=== PATIENT | male | born 1960 | race Caucasian/White ===

== ENCOUNTER 2023-08-04 10:45 | Emergency (ER) | payer MEDICARE, SELFPAY ==
[2023-08-04] VITALS (14 sets, daily range): BP systolic 170–175; BP diastolic 74–84; PULSE 69–80; RESP 10–22; TEMP 36.9; O2SAT 91–94
--- NOTE | ~2023-08-04 | XR_ITS ---
EXAMINATION: XR chest 2V DATE: 08/04/2023 11:38 INDICATION: Weakness. TECHNIQUE: Frontal and lateral views of the chest were obtained. COMPARISON: None. FINDINGS: There is no pneumonia, pleural effusion, or pneumothorax. The heart size is normal. A vascu lar stent overlies the left shoulder. IMPRESSION: 1. No acute cardiopulmonary disease. Reviewed, dictated and finalized at location A.
--- NOTE | 2023-08-04 10:48 | ECG_ITS ---
[facility] [address] Test Date: 2023-08-04 Pat Name: Jaime Canas Department: Room: Gender: M Electrical Drafter: : 1960 Requested By: Wang Gómez Order Number: [id number] Jason MD: Hunter Gasca M.D. Measurements Intervals [place] Rate: 77 P: 58 DE: 178 QRS: -5 QRSD: 99 T: 49 QT: 412 QTc: 466 Interpretive Statements SINUS RHYTHM WITH OCCASIONAL VENTRICULAR PREMATURE COMPLEXES No previous ECG available for comparison Electronically Signed On 08-05-2023 13:48:38 CDT by Hunter Gasca M.D.
[2023-08-04 11:24] LABS: Basophils Percent Auto 0.4 % (0.2-1.2); Eosinophils Absolute Auto 0.1 K/mm3 (0-0.3); Eosinophils Percent Auto 1.7 % (0-4.4); Hematocrit 29.8 % (42.0-52.0); Hemoglobin 10.3 g/dL (14.0-18.0); Immature Granulocyte Absolute 0.01 K/mm3 (0.00-0.031); Immature Granulocyte Percent A 0.1 % (0-0.5); Lymphocytes Absolute Auto 1.62 K/mm3 (0.9-3.2); Lymphocytes Percent Auto 20.6 % (18.3-44.2); Mean Corpuscular HGB Conc 34.6 g/dl (32-36); Mean Corpuscular Hemoglobin 37.5 pg (26-34); Mean Corpuscular Volume 108.4 fl (80-100); Mean Platelet Volume 9.7 fl (7.4-10.4); Monocytes Absolute Auto 0.7 K/mm3 (0.1-0.6); Monocytes Percent Auto 9.3 % (2.6-8.5); Neutrophils Absolute Auto 5.3 K/mm3 (1.3-6.7); Neutrophils Percent Auto 67.9 % (45.5-73.1); Platelet Count Result 127 k/mm3 (150-375); Red Blood Count 2.75 M/mm3 (4.6-6.20); Red Cell Distribution Width 16.8 % (11.5-14.5); White Blood Count 7.9 K/mm3 (4.5-10.0)
[2023-08-04 11:49] LABS: Alanine Aminotransferase 16 U/L (6-50); Albumin Level 4.5 g/dL (3.5-5.1); Alkaline Phosphatase 91 U/L (38-126); Anion Gap 16 mmol/L (4-12); Aspartate Amino Transferase 30 U/L (17-59); Bilirubin,Total 1.2 mg/dL (0.2-1.3); Blood Urea Nitrogen 88 mg/dL (9-20); Calcium 9.5 mg/dL (8.4-10.2); Carbon Dioxide 26 mmol/L (22-30); Chloride 98 mmol/L (98-107); Estimated CRCL calculation 4 ml/min; Estimated Glomerular Filt Rate 3; Glucose 79 mg/dL (65-110); Potassium 5.8 mmol/L (3.4-5.0); Sodium 140 mmol/L (137-145)
[2023-08-04 11:59] LABS: Platelet Estimate Decreased (Adequate)
[2023-08-04 12:00] LABS: Anisocytosis 1+; Macrocytosis 1+ (NORMAL); Schistocytes None Seen
[2023-08-04] MEDS: SODIUM ZIRCONIUM CYCLOSILICATE 10 GM POWD.PACK PO (13:12)
--- NOTE | 2023-08-04 13:43 | ED.WEAKNESS ---
HPI - Weakness General Chief complaint: Weakness Stated complaint: weakness Time Seen by Provider: 08/04/23 10:59 Source: patient Mode of arrival: EMS Limitations: no limitations History of Present Illness HPI Narrative: 63-year-old with a history of hypertension, ESRD on dialysis here with the complaints of weakness since at this morning. Patient states that he was scheduled for dialysis but he felt extremely weak. Patient also reports that he used cocaine and alcohol last night and was unable to get up for his dialysis. He denies any chest pain no history of nausea or, vomiting or fever or chills. He endorses as his [employer] Sty[employer] and he gets his head dialysis at [facility] Complaint: generalized weakness Location: generalized Related Data Allergies Allergy/AdvReac Type Severity Reaction Status Date / Time No Known Allergies Allergy Verified 08/04/23 11:16 Review of Systems Review of Systems: All systems reviewed & are unremarkable except as noted in HPI and below Constitutional: Constitutional: Reports no additional constitutional complaints Eyes: Eyes: Reports no additional eye complaints ENT: Reports system reviewed and no additional complaints, except as documented Cardiovascular: Cardiovascular: Reports no additional cardiovascular complaints Respiratory: Respiratory: Reports no additional respiratory complaints Musculoskeletal: Musculoskeletal: Reports no additional musculoskeletal complaints Neurologic: Reports system reviewed and no additional complaints, except as documented Exam Narrative: GENERAL: Well-appearing, well-nourished, and in no acute distress. HEAD: Normocephalic, atraumatic. EYES: PERRLA and EOMI. ENT: Nares clear, no rhinorrhea or epistaxis. Mucous membranes moist. NECK: Supple. CHEST: Clear to auscultation. No respiratory distress. HEART: Regular rate and rhythm. No murmur heard. Normal peripheral pulses. ABDOMEN: Soft, nontender, nondistended, normal active bowel sounds. EXTREMITIES: Normal range of motion. No edema. SKIN: Warm, dry, no rash. NEURO: No focal deficits. Alert and oriented x3. PSYCH: Normal mood and affect. Course Course Emergency Course: I reviewed his lab work his potassium is 5 point he will given Lokelma. Discussed with Dr. monroy, patient can be discharged home and can be dialyzed tomorrow morning. Advised patient to stay away from cocaine and alcohol. Vital Signs Vital signs: Vital Signs Temperature 36.9 C 08/04/23 10:48 Pulse Rate 80 08/04/23 10:48 Respiratory Rate 20 08/04/23 10:48 Blood Pressure 175/82 H 08/04/23 10:48 Pulse Oximetry 94 08/04/23 10:48 Oxygen Delivery Room Air 08/04/23 10:48 Temperature 36.9 C 08/04/23 10:48 Pulse Rate 80 08/04/23 10:48 Respiratory Rate 20 08/04/23 10:48 Blood Pressure 175/82 H 08/04/23 10:48 Pulse Oximetry 94 08/04/23 10:48 Oxygen Delivery Room Air 08/04/23 10:48 MDM - Weakness Differential Diagnosis Differential diagnosis: Likely hypoglycemia, dehydration and other (Alcohol and drug abuse) Lab Data Attestation: I reviewed the patient's lab results. 08/04/23 11:13 08/04/23 11:13 Labs: Lab Results 08/04/23 Range/Units 11:13 WBC 7.9 (4.5-10.0) K/mm3 RBC 2.75 L (4.6-6.20) M/mm3 Hgb 10.3 L (14.0-18.0) g/dL Hct 29.8 L (42.0-52.0) % MCV 108.4 H (80-100) fl MCH 37.5 H (26-34) pg MCHC 34.6 (32-36) g/dl RDW 16.8 H (11.5-14.5) % Plt Count 127 L (150-375) k/mm3 MPV 9.7 (7.4-10.4) fl Immature Gran % (Auto) 0.1 (0-0.5) % Neut % (Auto) 67.9 (45.5-73.1) % Lymph % (Auto) 20.6 (18.3-44.2) % [place] % (Auto) 9.3 H (2.6-8.5) % Eos % (Auto) 1.7 (0-4.4) % Baso % (Auto) 0.4 (0.2-1.2) % Lymph # (Auto) 1.62 (0.9-3.2) K/mm3 [place] # (Auto) 0.7 H (0.1-0.6) K/mm3 Eos # (Auto) 0.1 (0-0.3) K/mm3 Baso # (Auto) 0.0 (0.0-0.1) K/mm3 Abs Immat Gran (auto) 0.01 (0.00
== END 2023-08-04 14:22 | disposition home or self-care (01) ==
PROVIDERS: Emergency Provider Family Medicine
DX: R53.1 Weakness (principal); I12.0 Hypertensive chronic kidney disease with stage 5 chronic kidney disease or end stage renal disease; N18.6 End stage renal disease; E87.5 Hyperkalemia; F14.10 Cocaine abuse, uncomplicated; Z99.2 Dependence on renal dialysis
CPT/HCPCS: 36415; 71046; 80053; 85025; 93005; 99283; A9270